=== PATIENT | male | born 1975 | race Caucasian/White ===

== ENCOUNTER 2019-04-22 04:09 | Inpatient (IN) | payer OTHER ==
[~2019-04-22] VITALS: Ht 172.7 cm; Wt 86.2 kg
[2019-04-22] MEDS ORDERED: ZIPRASIDONE MESYLATE 20 MG/ML VIAL IM ONE (04:15)
[2019-04-22 04:18] VITALS: BP 135/82
--- NOTE | 2019-04-22 04:18 | NUR ---
LABS DRAWN BY RN AT BEDSIDE.
[2019-04-22] MEDS ORDERED: WATER STERILE 10 ML MC ONE (04:21)
--- NOTE | 2019-04-22 04:22 | NUR ---
43 YO M BIBA FROM HOME. FAMILY CALLED 911 DUE TO PT'S BIZARRE BEHAVIOR AND INAPPROPRIATE SPEECH. PER FAMILY, PT HAS HX OF BIPOLAR AND SCIZOPHRENIA AND HAS NOT TAKEN HIS LITHIUM AND RISPERDAL RX X 2 DAYS. PT ARRIVES AWAKE WITH RAPID, CONSTANT, EXCESSIVE SPEECH; FLIGHT OF IDEAS PRESENT. PT USING OFFENSIVE, VULGAR LANGUAGE. UNABLE TO REDIRECT SPEECH; UNABLE TO ANSWER QUESTIONS AT THIS TIME. PT DOES FOLLOW COMMANDS WHEN DIRECTED. NON COMBATIVE. PMH-- SCHIZOPHRENIA, BIPOLAR
[2019-04-22 04:30] LABS: BASOPHILS % (AUTO) 0.3 % (0.0-2.0); EOSINOPHILS % (AUTO) 0.1 % (0.0-4.0); HEMATOCRIT 39.7 % (36-52); HEMOGLOBIN 13.1 g/dL (12.0-18.0); LYMPHOCYTES # (AUTO) 2.3 K/uL (2.0-11.5); LYMPHOCYTES % (AUTO) 16.9 % (20.5-51.1); MEAN CORPUSCULAR HEMOGLOBIN 29 pg (27-31); MEAN CORPUSCULAR HGB CONC 33 g/dL (33-37); MEAN CORPUSCULAR VOLUME 88.5 fL (80-94); MONOCYTES # (AUTO) 1.1 K/uL (0.8-1.0); MONOCYTES % (AUTO) 8.5 % (1.7-9.3); NEUTROPHILS # (AUTO) 9.9 K/uL (1.8-7.7); NEUTROPHILS % (AUTO) 74.2 % (42.2-75.2); PLATELET COUNT (AUTO) 223 K/uL (140-450); RED BLOOD CELL COUNT(AUTO) 4.49 MIL/uL (4.20-6.10); WHITE BLOOD COUNT (AUTO) 13.3 K/uL (4.8-10.8)
[2019-04-22] MEDS ORDERED: NACL 0.9% 1,000 ML IV ONE (04:30)
--- NOTE | 2019-04-22 04:30 | NUR ---
SPOKE WITH EILSSA KENNY. [phone]. WILL UPDATE ON PT'S STATUS.
[2019-04-22 04:45] LABS: ALBUMIN 3.7 g/dL (3.4-5.0); ANION GAP 18.1 (8-16); ASPARTATE AMINOTRANSFERASE 56 U/L (15-37); CARBON DIOXIDE 23.5 mmol/L (21-32); CHLORIDE 105 mmol/L (98-107); CREATININE 1.3 mg/dL (0.7-1.3); GFR ARICAN-AMERICAN 78 mL/min (>90); GLUCOSE 169 mg/dL (74-106); POTASSIUM 3.6 mmol/L (3.5-5.1); SALICYLATE 3.3 mg/dL (2.8-20.0); SODIUM SERUM 143 mmol/L (136-145); TOTAL BILIRUBIN 0.9 mg/dL (0.0-1.0); UREA NITROGEN, BLOOD 19 mg/dL (7-18)
[2019-04-22] MEDS ORDERED: HYDROcodone/APAP 5/325 MG 1 TAB TAB PO PRN (05:00)
[2019-04-22] MEDS ORDERED: MORPHINE SULFATE 2 MG/ML SYR IVP PRN (05:00)
[2019-04-22] MEDS ORDERED: DOCUSATE SODIUM 100 MG GELCAP PO PRN (05:00)
[2019-04-22] MEDS ORDERED: ONDANSETRON 4 MG/2 ML VIAL IM/IVP PRN (05:00)
[2019-04-22] MEDS ORDERED: LORazepam 2 MG/ML VIAL IM/IVP PRN (05:00)
[2019-04-22] MEDS ORDERED: ACETAMINOPHEN 325 MG TAB PO PRN (05:00)
[2019-04-22] MEDS ORDERED: ZOLPIDEM 5 MG TAB PO PRN (05:00)
--- NOTE | 2019-04-22 05:00 | NUR ---
URINE COLLECTED VIA 16 FR STRAIGHT CATH. PT TOLERATED WELL.
[2019-04-22] MEDS ORDERED: LORazepam 2 MG/ML VIAL IVP ONE (05:20)
--- NOTE | 2019-04-22 05:38 | NUR ---
PT SLEEPING; AROUSABLE TO VERBAL STIMULI. PT IS CALM, COOPERATIVE. PT IS ABLE TO ANSWER SIMPLE QUESTIONS. PT IS ABLE TO STATE HIS NAME AND , STATES HE IS IN A HOSPITAL AND IS ABLE TO RECALL BEING WITH HIS BROTHER PRIOR TO ARRIVAL. SOME FLIGHT OF IDEAS STILL PRESENT. PT FOLLOWS COMMANDS.
[2019-04-22 05:55] VITALS: BP 108/69
--- NOTE | 2019-04-22 05:55 | NUR ---
Patient will be admitted to care of Dr. Rai. Admited to TELE. Will go to room 109A. Belongings list completed. Report to GWENDOLYN Canchola.
--- NOTE | 2019-04-22 05:55 | NUR ---
RECEIVED REPORT FROM ER NURSE. PATIENT IN STABLE CONDITION. CONFUSED. ON TELEMETRY. IV ON RIGHT AC 20G. INITIAL VITAL SIGNS: UR=930/69, TEMP=97.3, HR=96, RR=18 AND O2 SAT AT 97%. SPECIMEN FOR MRSA NARES COLLECTED AND SENT TO LABORATORY. PATIENT POSITIONED COMFORTABLY IN BED. BED ON LOW POSITION. WILL ENDORSE TO AM NURSE.
[2019-04-22 06:19] LABS: BARBITURATE, URINE NEGATIVE ng/ml (NEG <=200); BENZODIAZEPINE, URINE NEGATIVE ng/mL (NEG <=200); CANNABINOID, URINE POSITIVE ng/mL (NEG <=50); COCAINE, URINE NEGATIVE ng/mL (NEG <=300); OPIATE, URINE NEGATIVE ng/mL (NEG <=2000); PHENCYCLIDINE SCREEN,URINE NEGATIVE ng/mL (NEG <=25)
[2019-04-22] MEDS ORDERED: ESK300 PO (06:23)
[2019-04-22] MEDS ORDERED: RISP3TAB19 PO (06:24)
[2019-04-22 06:47] LABS: PROTHROMBIN TIME 9.3 secs (10.8-13.4)
[2019-04-22 07:11] LABS: BILIRUBIN,URINE 1+ (NEGATIVE); BLOOD, URINE NEGATIVE (NEGATIVE); COLOR,URINE YELLOW (YELLOW); LEUKOCYTE ESTERASE ,URINE NEGATIVE (NEGATIVE); NITRITE, URINE NEGATIVE (NEGATIVE); PH,URINE 5.5 (5.0-9.0); UGLUCOSE NEGATIVE (NEGATIVE)
--- NOTE | 2019-04-22 07:17 | NUR ---
RECEIVED REPORT FROM ROUGH RICE TENDER RN. PT IS AAOX4, AWARE OF SITUATION BUT WITHDRAWN. PT SKIN IS INTACT. PT HAS IV IN THE RIGHT AC 20G. WILL INFUSE ORDERED FLUIDS. PT ABLE TO AMBULATE WITH NO PROBLEM. EXPLAINED POC TO PT AND PT VERBALIZED UNDERSTANDING. ALL SAFETY MEASURES IN PLACE. SITTER 1:1 BEDSIDE DUE TO PT BEING AGGRESSIVE IN THE ED. WILL ROUND FREQUENTLY ON PT. BED IN LOW POSITION.
--- NOTE | 2019-04-22 07:29 | NUR ---
REPORT GIVEN TO ONCOMING AM SHIFT NURSE. PATIENT IN STABLE CONDITION.
[2019-04-22 07:33] LABS: APPEARANCE,URINE SLIGHTLY HAZY (CLEAR)
[2019-04-22 07:34] LABS: RBC,URINE 0-5 /HPF (0-5); WBC,URINE 0-5 /HPF (0-5)
[2019-04-22 07:35] LABS: HYALINE CASTS, URINE 0-10 /LPF (None Seen); URINE AMORPHOUS URATE 1+ /HPF (None Seen)
[2019-04-22 08:00] VITALS: BP 113/73
--- NOTE | 2019-04-22 08:22 | NUR ---
PATIENT HAS BEEN SCREENED AND CATEGORIZED LOW NUTRITION RISK. PATIENT WILL BE SEEN WITHIN 7 DAYS OF ADMISSION. 04/28/[address]
[2019-04-22 08:23] LABS: CHOL/HDL RATIO 4.6 (1-4.5); MAGNESIUM 1.8 mg/dL (1.8-2.4); PHOSPHORUS 4.5 mg/dL (2.5-4.9); THYROID STIMULATING HORMONE 2.8 uIU/mL (0.34-3.74)
[2019-04-22 08:32] LABS: ACETAMINOPHEN < 0.5 ug/ml (10-30)
[2019-04-22] MEDS ORDERED: FOLIC ACID 1 MG TAB PO SCH (09:00)
[2019-04-22] MEDS ORDERED: MULTIVITAMIN 1 TAB PO SCH (09:00)
[2019-04-22] MEDS ORDERED: THIAMINE 200 MG/2 ML VIAL IM SCH (09:00)
--- NOTE | 2019-04-22 09:20 | NUR ---
FLUIDS STARTED PER MD ORDERS. NO OTHER MEDS GIVEN AT THIS TIME. WILL CONTINUE TO ROUND FREQUENTLY ON PT. BED IN LOW POSITION, CALL LIGHT WITHIN REACH.
[2019-04-22] MEDS: NACL 0.9% 1,000 ML IV SCH (10:33)
--- NOTE | 2019-04-22 11:40 | NUR ---
PT RESTING IN BED. ALL NEEDS MET. WILL CONTINUE TO ROUND FREQUENTLY ON PT. BED IN LOW POSITION, CALL LIGHT WITHIN REACH.
[2019-04-22 12:00] VITALS: BP 107/68
--- NOTE | 2019-04-22 13:26 | NUR ---
PT RESTING IN BED. ALL NEEDS MET. WILL CONTINUE TO ROUND FREQUENTLY ON PT. BED IN LOW POSITION, CALL LIGHT WITHIN REACH.
[2019-04-22] MEDS ORDERED: INFLUENZA VACCINE QUAD 0.5 ML SYR IMVAC SCH (14:00)
--- NOTE | 2019-04-22 14:38 | NUR ---
[facility] Patient: Jared Philippe : 1975 Age/Sex: 43/M Unit#: [id number] Room/Bed: 109/A User: Esteltia WARE Date: 04/22/19 14:19 Type: CM: Discharge Planning Tentative Discharge Plan Summary: Patient is 43 year old male with past medical history bipolar disorder and schizophrenia. I met with patient at bedside. Patient was uncooperative during assessment/discharge plan. He stated he lives at home with his girlfriend in [place], [place]. He refused to provide me with his home address and girlfriend's contact information. He stated he has a pcp. He refused to provide me with additional information. He told me he does not need any community resources nor needs social service coordinator's assistance. I informed patient's nurse Ammy patient refused community resources. Spooler Rubber Strand and/or Data Entry Supervisor will follow up as needed. Signature: SCOOTER Haile Date: Apr 22, 2019
[2019-04-22] MEDS ORDERED: INFLUENZA VACCINE QUAD 0.5 ML SYR IMVAC PRN (15:30)
--- NOTE | 2019-04-22 15:40 | NUR ---
PT SLEEPING. ALL NEEDS MET. WILL CONTINUE TO ROUND FREQUENTLY ON PT. BED IN LOW POSITION, CALL LIGHT WITHIN REACH.
[2019-04-22 16:00] VITALS: BP 111/64
--- NOTE | 2019-04-22 18:09 | NUR ---
PT EATING DINNER IN BED. ALL NEEDS MET. WILL CONTINUE TO ROUND FREQUENTLY ON PT. BED IN LOW POSITION, CALL LIGHT WITHIN REACH.
--- NOTE | 2019-04-22 19:28 | NUR ---
ENDORSED PT TO PRODUCE FIELD MERCHANDISER FOR CONTINUITY OF CARE. PT IN STABLE CONDITION AT THIS TIME.
--- NOTE | 2019-04-22 19:29 | NUR ---
RECEIVED REPORT FROM POLISH COMPOUNDER RN. PT IS AAOX4,AMBULATORY. PT SLEEPING BUT EASILY AROUSABLE. PT HAS IV IN THE RIGHT AC 20G NS AT 60 ML/HR. EXPLAINED POC TO PT AND PT VERBALIZED UNDERSTANDING. PER PREVIOUS SHIFT WAS PT BEING AGGRESSIVE IN THE ED. WILL ROUND FREQUENTLY ON PT. BED IN LOW POSITION.
[2019-04-22 20:00] VITALS: BP 110/68
[2019-04-22] MEDS: risperiDONE 1 MG TAB PO SCH (21:13)
--- NOTE | 2019-04-22 21:16 | NUR ---
PT COMPLAINED OF ANXIOUSNESS, PT GIVEN ATIVAN ORDERED FOR ANXIETY
--- NOTE | 2019-04-22 23:50 | NUR ---
PT SLEEPING AT THIS TIME, NO COMPLAINTS WILL CONTINUE TO MONITOR
[2019-04-23] VITALS: BP 108/68
--- NOTE | 2019-04-23 03:45 | NUR ---
PT USING URINAL BUT ABLE TO GO TO BATHROOM, PT FEELS SLEPY WENT BACK TO SLEEP, NO COMPLAINTS AT THIS TIME
[2019-04-23 04:00] VITALS: BP 110/69
[2019-04-23] MEDS: NACL 0.9% 1,000 ML IV SCH ×3 (05:28→23:30)
--- NOTE | 2019-04-23 05:29 | NUR ---
UNDO ZOFRAN ADMINISTRATION FOR ANOTHER PATIENT
--- NOTE | 2019-04-23 06:40 | NUR ---
DR. SCHREIBER AWARE OF ABNORMAL EKG. WILL ORDER AND I WILL CARRY OUT ORDERS
[2019-04-23 06:43] LABS: BASOPHILS % (AUTO) 0.5 % (0.0-2.0); EOSINOPHILS # (AUTO) 0.1 K/uL (0-0.4); HEMATOCRIT 34.9 % (36-52); HEMOGLOBIN 11.8 g/dL (12.0-18.0); LYMPHOCYTES # (AUTO) 2.4 K/uL (2.0-11.5); MEAN CORPUSCULAR HEMOGLOBIN 30 pg (27-31); MEAN CORPUSCULAR HGB CONC 34 g/dL (33-37); MEAN CORPUSCULAR VOLUME 88.5 fL (80-94); MONOCYTES # (AUTO) 0.6 K/uL (0.8-1.0); NEUTROPHILS % (AUTO) 56.5 % (42.2-75.2); PLATELET COUNT (AUTO) 184 K/uL (140-450); RED BLOOD CELL COUNT(AUTO) 3.94 MIL/uL (4.20-6.10); RED CELL DISTRIBUTION WIDTH 13.8 % (11.6-13.7); WHITE BLOOD COUNT (AUTO) 7.2 K/uL (4.8-10.8)
[2019-04-23 06:46] LABS: ANION GAP 13.1 (8-16); CARBON DIOXIDE 24.4 mmol/L (21-32); CREATININE 0.8 mg/dL (0.7-1.3); POTASSIUM 3.5 mmol/L (3.5-5.1)
--- NOTE | 2019-04-23 07:27 | NUR ---
PT ASLEEP BUT EASILY AROUSABLE BY VERBAL AND TACTILE STIMULI. PT IN STABLE CONDITION. WILL ENDORSE TO NEXT SHIFT
--- NOTE | 2019-04-23 07:30 | NUR ---
Received bedside report from pm nurse Marianna. Pt asleep in bed, arousable by auditory stimuli. No signs of distress, respirations even & nonlabored. Call light within reach. Right AC IV intact with ongoing NS @ 60ml/h.
[2019-04-23 08:00] VITALS: BP 122/83
[2019-04-23] MEDS: risperiDONE 1 MG TAB PO SCH ×2 (08:52→20:24)
[2019-04-23] MEDS: FOLIC ACID 1 MG TAB PO SCH (08:52)
[2019-04-23] MEDS: MULTIVITAMIN 1 TAB PO SCH (08:52)
[2019-04-23] MEDS: THIAMINE 100 MG TAB PO SCH (08:52)
[2019-04-23] MEDS ORDERED: chlordiazePOXIDE 25 MG CAP PO SCH (09:00)
--- NOTE | 2019-04-23 09:00 | NUR ---
Found med bottle at pt's bedside. With pt permission, belongings inventoried. Found bottle of lithium 300mg caps containing 3 capsules. Per med bottle label "take 2capsules in the morning". Pt states he still takes the meds prior to hospitalization. Dr Grier notified. Per physician, will f/u with psychiatrist for verification. Med bottle taken to pharmacy.
--- NOTE | 2019-04-23 09:20 | NUR ---
Pt states ED nurse took away a "[place] coin" and "[place] coin". Audra assistant director of security notified and brought in a bag with 2 coins & a small packet of dry herb. Pt instructed security to dispose of the small packet. 2 coins were handed to pt and was put away in his personal belongings bag at bedside.
[2019-04-23] MEDS ORDERED: LITHIUM CARBONATE 300 MG TAB PO SCH (10:45)
--- NOTE | 2019-04-23 14:01 | NUR ---
Pt asleep in bed, respirations even & unlabored. Right AC IV intact with ongoing NS @ 60ml/h. Urinal emptied of 300ml clear yellow urine. Empty food tray at table. Pt consumed 100% lunch. Call light within reach.
[2019-04-23 16:00] VITALS: BP 119/75
--- NOTE | 2019-04-23 17:35 | NUR ---
PT ASLEEP IN BED. RESPIRATIONS EVEN AND UNLABORED. RIGHT AC INTACT RUNNING NS @ 60 ML/H. URINAL EMPTIED OF 200ML CLEAR YELLOW URINE. CALL LIGHT WITHIN REACH.
--- NOTE | 2019-04-23 18:34 | NUR ---
PT REQUEST FOR SHOWER. IV FLUID HELD. RIGHT AC IV WRAPPED WITH PLASTIC, PT ASSISTED TO SHOWER ROOM. PT ABLE TO AMBULATE TO SHOWER ROOM WITH STEADY GAIT. PT INSTRUCTED ON PROPER USE OF CALL LIGHT IF ASSISTANCE IS NEEDED, PT VERBALIZED UNDERSTANDING.
--- NOTE | 2019-04-23 19:11 | NUR ---
REPORT RECEIVED FROM AM NURSE AT BEDSIDE. PT IN STABLE CONDITION. AAOX4. INTRODUCED SELF TO PT. BOARD UPDATED. NO COMPLAINTS OF PAIN. NO SOB. AFEBRILE. PT IS AMBULATORY WITH STEADY GAIT. IV SITE R AC 20G RUNNING NS@60ML/HR PATENT AND INTACT. SKIN WARM, DRY, AND INTACT WITH NO OPEN WOUNDS. BED LOCKED IN LOW POSITION. CALL MURRELL WITHIN REACH. SAFETY PRECAUTION IN PLACE. ALL NEEDS MET AT THIS TIME.
--- NOTE | 2019-04-23 19:15 | NUR ---
Pt completed shower independently. Able to don clean gown @ non-skid socks independently. Pt directed back to room from shower room. Pt in no distress. Report given to pm nurse Lv.
--- NOTE | 2019-04-23 20:24 | NUR ---
RISPERDAL GIVEN PO. PT TOLERATED WELL.
--- NOTE | 2019-04-23 22:15 | NUR ---
PT SLEEPING COMFORTABLY BUT AROUSABLE. NO S/S OF DISTRESS NOTED. WILL CONTINUE TO MONITOR.
[2019-04-24] VITALS: BP 117/88
--- NOTE | 2019-04-24 00:15 | NUR ---
PT SLEEPING COMFORTABLY BUT AROUSABLE. NO S/S OF DISTRESS NOTED. NO COMPLAINTS OF PAIN. NO SOB. AFEBRILE. WILL CONTINUE TO MONITOR.
[2019-04-24] MEDS ORDERED: BENZOCAINE/MENTHOL 1 LOZ MM PRN (00:30)
--- NOTE | 2019-04-24 00:59 | NUR ---
CEPACOL LOZENGE GIVEN FOR COUGH. PT TOLERATED WELL.
--- NOTE | 2019-04-24 02:30 | NUR ---
PT SLEEPING COMFORTABLY BUT AROUSABLE. NO S/S OF DISTRESS NOTED. WILL CONTINUE TO MONITOR.
--- NOTE | 2019-04-24 04:50 | NUR ---
PT SLEEPING COMFORTABLY BUT AROUSABLE. NO S/S OF DISTRESS NOTED. RESPIRATIONS EVEN, UNLABORED, AND WNL. WILL CONTINUE TO MONITOR.
[2019-04-24 06:22] LABS: BASOPHILS % (AUTO) 0.5 % (0.0-2.0); EOSINOPHILS # (AUTO) 0.2 K/uL (0-0.4); EOSINOPHILS % (AUTO) 2.6 % (0.0-4.0); HEMATOCRIT 36.6 % (36-52); HEMOGLOBIN 12.1 g/dL (12.0-18.0); LYMPHOCYTES # (AUTO) 2.6 K/uL (2.0-11.5); LYMPHOCYTES % (AUTO) 41.4 % (20.5-51.1); MEAN CORPUSCULAR HEMOGLOBIN 29 pg (27-31); MEAN CORPUSCULAR HGB CONC 33 g/dL (33-37); MEAN CORPUSCULAR VOLUME 88.6 fL (80-94); MONOCYTES # (AUTO) 0.6 K/uL (0.8-1.0); NEUTROPHILS % (AUTO) 46.5 % (42.2-75.2); PLATELET COUNT (AUTO) 198 K/uL (140-450); RED BLOOD CELL COUNT(AUTO) 4.13 MIL/uL (4.20-6.10); RED CELL DISTRIBUTION WIDTH 13.8 % (11.6-13.7); WHITE BLOOD COUNT (AUTO) 6.4 K/uL (4.8-10.8)
--- NOTE | 2019-04-24 06:42 | NUR ---
PT SLEEPING COMFORTABLY BUT AROUSABLE. PT IN STABLE CONDITION.
[2019-04-24 06:44] LABS: ANION GAP 11.3 (8-16); CARBON DIOXIDE 28.4 mmol/L (21-32); CREATININE 0.9 mg/dL (0.7-1.3); POTASSIUM 3.7 mmol/L (3.5-5.1)
--- NOTE | 2019-04-24 07:07 | NUR ---
RECEIVED REPORT FROM PM NURSE, JORGE. PT IS ASLEEP IN BED, RESPIRATION ARE EVEN AND UNLABORED. PT IS STABLE WITH NO SIGNS OF DISTRESS.
[2019-04-24 08:00] VITALS: BP 105/66
[2019-04-24] MEDS ORDERED: RIS1 PO (08:02)
[2019-04-24] MEDS ORDERED: ESK300 PO (08:02)
[2019-04-24] MEDS: risperiDONE 1 MG TAB PO SCH ×2 (08:12→20:14)
[2019-04-24] MEDS: MULTIVITAMIN 1 TAB PO SCH (08:13)
[2019-04-24] MEDS: THIAMINE 100 MG TAB PO SCH (08:13)
[2019-04-24] MEDS: FOLIC ACID 1 MG TAB PO SCH (08:13)
[2019-04-24] MEDS ORDERED: chlordiazePOXIDE 25 MG CAP PO SCH (09:00)
[2019-04-24] MEDS ORDERED: LITHIUM CARBONATE 300 MG TAB PO SCH ×2 (09:00)
--- NOTE | 2019-04-24 10:30 | NUR ---
Pt's mother on the phone stating that she thinks the pt is not ready to be discharged d/t psych instability. Per , pt will "cause a scene at home". Informed her that pt has been cleared by psych and medical doctor for discharge. Phone handed to Dr Grier.
--- NOTE | 2019-04-24 11:10 | NUR ---
Per Dr Grier, hold discharge order at this time. Dr Garcia will come in am to re-evaluate pt. Pt resting in bed at this time, no signs of distress. Call light within reach.
--- NOTE | 2019-04-24 11:14 | NUR ---
Pt notified of discharge hold. Verbalized understanding & agree with POC.
--- NOTE | 2019-04-24 11:38 | NUR ---
Spoke to (pt's mother) on the phone. Notified of discharge hold with pending psych reevaluation for tomorrow morning. Verbalized understanding & agree with POC.
--- NOTE | 2019-04-24 13:34 | NUR ---
PT IS ASLEEP. RESPIRATION ARE EVEN AND UNLABORED. PT IS FREE OF SIGNS OF DISTRESS. CALL LIGHT WITHIN REACH.
[2019-04-24 16:00] VITALS: BP 111/72
[2019-04-24] MEDS: NACL 0.9% 1,000 ML IV SCH (16:23)
--- NOTE | 2019-04-24 19:03 | NUR ---
Right AC IV leaking despite repositioning of catheter. IV removed, site covered with dry gauze. Attempted to reinsert new IV access, but unsuccessful. Pt states "no more IV." Will notify attending physician. IVF on hold at this time. Pt denies any discomfort. No signs of distress. Call light within reach.
--- NOTE | 2019-04-24 19:17 | NUR ---
RECIEVED PT AWAKE , ALERT , NID , NO COMPLAIN OF ANY DISCOMFORT AT THIS TIME , NO IVF - PT REFUSED FOR IV RE INSERTION ,RESTING ON BED COMFORTABLY . PLAN OF CARE DISCUSSED AND VERBALIZE [id number]. CALL LIGHT WITHIN REACH . WILL CONT. TO MONITOR. WILL INFORM ROGER ABOUT PT. IV REFUSAL .
--- NOTE | 2019-04-24 19:22 | NUR ---
1916 Report given to PM nurse, pt resting in bed. pt stable, no signs of distress. call light within reach.
--- NOTE | 2019-04-24 22:00 | NUR ---
MADE ROUNDS , RESTING ON BED COMFORTABLY , NO COMPLAIN MADE AT THIS TIME . CALL LIGHT WITHIN REACH.
[2019-04-25] VITALS: BP 130/82
--- NOTE | 2019-04-25 | NUR ---
MADE ROUNDS . NO COMPLIAN MADE AT THIS TIME . CALL LIGHT WITHIN REACH.
--- NOTE | 2019-04-25 02:00 | NUR ---
SLEEPING - CHEST RISE AND FALL EQUALLY . CALL LIGHT WITHIN REACH.
--- NOTE | 2019-04-25 04:00 | NUR ---
MADE ROUNDS , NO SIGNS OF ACUTE DISTRESS NOTED AT THIS TIME , CALL LIGHT WITHIN REACH.
--- NOTE | 2019-04-25 07:15 | NUR ---
ENDORSED TO AM SHIFT WITH STABLE CONDITION. FOR POSSIBLE HOME.
--- NOTE | 2019-04-25 07:18 | NUR ---
RECEIVED REPORT FROM LAB COORDINATOR NURSE. PATIENT IS LYING IN BED, ASLEEP, ABLE TO WAKE. RESPIRATION EVEN AND UNLABORED. DENIES ANY PAIN OR DISCOMFORT. BED IN LOW POSITION. CALL LIGHT WITHIN REACH.
[2019-04-25 08:00] VITALS: BP 119/84
[2019-04-25] MEDS: LITHIUM CARBONATE 300 MG TAB PO SCH (08:40)
[2019-04-25] MEDS: FOLIC ACID 1 MG TAB PO SCH (08:40)
[2019-04-25] MEDS: risperiDONE 1 MG TAB PO SCH ×2 (08:40→20:15)
[2019-04-25] MEDS: MULTIVITAMIN 1 TAB PO SCH (08:40)
[2019-04-25] MEDS: THIAMINE 100 MG TAB PO SCH (08:41)
--- NOTE | 2019-04-25 08:43 | NUR ---
AM MEDICATIONS GIVEN. TOLERATED WELL. NO S/S OF ACUTE DISTRESS NOTED.
--- NOTE | 2019-04-25 10:18 | NUR ---
PT SLEEPING COMFORTABLY BUT AROUSABLE. PT IN STABLE CONDITION.
--- NOTE | 2019-04-25 12:34 | NUR ---
PATIENT IS SITTING UP, HAVING LUNCH IN BED. DENIES ANY PAIN OR DISCOMFORT. NO S/S OF ACUTE DISTRESS NOTED.
[2019-04-25 16:00] VITALS: BP 104/82
--- NOTE | 2019-04-25 16:00 | NUR ---
VS STABLE. PATIENT IS WATCHING TV AND TABLET AT THIS TIME. NO S/S OF DISTRESS NOTED.
--- NOTE | 2019-04-25 17:00 | NUR ---
LEFT A VOICEMAIL MESSAGE TO DR. YEE' CONTACT NUMBER TO FOLLOW UP WITH THE REEVALUATION. AWAITING FOR CALL BACK.
--- NOTE | 2019-04-25 18:06 | NUR ---
PATIENT IS SITTING UP IN BED, EATING DINNER. NO S/S OF DISTRESS NOTED.
--- NOTE | 2019-04-25 19:12 | NUR ---
REPORT GIVEN TO AUDIT REVIEWER NURSE. PATIENT IN STABLE CONDITION.
--- NOTE | 2019-04-25 19:16 | NUR ---
RECEIVED PT IN STABLE CONDITION FROM AM NURSE. AWAKE,ALERT AND ORIENTED X4. MED SURG PT. WITH NO C/O ANY DISCOMFORT NOR PAIN NOTED. AMBULATORY. NO IV ACCESS ,REFUSED BY PT PER AM NURSE AND MD AWARE. PLAN OF CARE DISCUSSED AND NEED REINFORCEMENT. BED ON LOW POSITION. FREQ ROUNDS NEEDED. SIDE RAILS UP X2, CALL LIGHT PLACED WITHIN EASY REACH. WILL CONTINUE TO MONITOR.
--- NOTE | 2019-04-25 19:30 | NUR ---
DR. YEE CAME AND SEEN PT.
--- NOTE | 2019-04-25 19:50 | NUR ---
DR. LANCEREES ABLE TO CONTACT [facility] AND SAID THERE IS BED AVAILABLE FOR PT. GWENDOLYN BROWNE CHARGE TO FAX THE PAPERS TO THE FACILITY.
--- NOTE | 2019-04-25 20:00 | NUR ---
PT HAS HOLD PAPER BY .PER PT DOESN'T NEED TO HAVE SITTER.
--- NOTE | 2019-04-25 20:19 | NUR ---
POSSIBLE TRANSFER TO [facility]. FLU VACCINE ADMINISTERED ON THE RIGHT ARM .
--- NOTE | 2019-04-25 20:30 | NUR ---
TOLD ME THAT HE TALKED W/[facility] AND THEY HAVE BED FOR PT.I FAXED FACE SHEET AND HOLD PAPER THAT DR YEE RENEWED EARLIER.CALLED [facility] TO F/U ON TRANSFER AT 2019 TALKED W/CYNDY,SHE SAID SHE DID RECEIVED COMPLETE HOLD PAPER.SO I FAXED AGAIN.SHE SAID SHE WILL REVIEW AND CALL ME BACK.
--- NOTE | 2019-04-25 21:00 | NUR ---
MADE ROUNDS. PT ASLEEP. NO S/S OF ANY DISCOMFORT NOTED. WILL CONTINUE TO MONITOR.
--- NOTE | 2019-04-25 22:00 | NUR ---
CALLED [facility] TO FOLLOW UP THE BED TRANSFER OF PT. ABLE TO TALKED TO CYNDY AND SAID THEY ARE STILL WORKING ON THE INSURANCE. SHE SAID TO CALL TOMORROW /OR IF WE CAN PROVIDE A COPY OF HIS INSURANCE, TO FAX THEM A COPY.
--- NOTE | 2019-04-25 22:11 | NUR ---
PAGED DR. YEE AND CALLED BACK. MADE AWARE ABOUT [facility] STILL WORKING ON PT'S INSURANCE AND WE WILL HAVE TO FOLLOW UP WITH THEM AGAIN TOMORROW.
[2019-04-25 23:46] VITALS: BP 125/92
--- NOTE | 2019-04-26 00:30 | NUR ---
PT IS ASLEEP. NO S/S FO ANY PAIN NOR DISCOMFORT NOTED. WILL CONTINUE TO MONITOR.
--- NOTE | 2019-04-26 02:30 | NUR ---
PRT UP TO THE BATHROOM. NO C/O ANY DISCOMFORT NOTED.
--- NOTE | 2019-04-26 04:30 | NUR ---
PT STILL ASLEEP. NO S/S OF ANY DISCOMFORT NOTED.
--- NOTE | 2019-04-26 07:32 | NUR ---
ENDORSED PT IN STABLE CONDITION TO AM NURSE.
--- NOTE | 2019-04-26 07:34 | NUR ---
PT IS AO X4. BEDSIDE RAILS UP X2, BED LOCKED AND IN LOWEST POSITION, PATIENT STATED THAT HE WALKS TOP RESTROOM W/O ASSIST. PER SUB PLANT MANAGER RN, PT DOESN'T WANT IV AND MD WAS MADE AWARE.
[2019-04-26 08:00] VITALS: BP 92/62
[2019-04-26] MEDS: THIAMINE 100 MG TAB PO SCH (08:59)
[2019-04-26] MEDS: FOLIC ACID 1 MG TAB PO SCH (08:59)
[2019-04-26] MEDS: risperiDONE 1 MG TAB PO SCH ×2 (08:59→20:39)
[2019-04-26] MEDS: LITHIUM CARBONATE 300 MG TAB PO SCH (08:59)
[2019-04-26] MEDS: MULTIVITAMIN 1 TAB PO SCH (09:00)
--- NOTE | 2019-04-26 10:00 | NUR ---
PT'S URINAL HAD 450 CC. URINAL WAS PLACED BACK TO PT'S BEDSIDE TABL
--- NOTE | 2019-04-26 11:09 | NUR ---
PT FOUND SLEEPING IN BED WITH NO SIGNS OF DISTRESS. CHEST VISIBLY RECOILING HE TOLD RN THAT HE HEARS VOICES RN TOLD PT THAT WE WILL HAVE TO CONT TAKING HIS MEDICATIONS AND TO LET RN KNOW FOR THE PSYCHIATRIST TO COME SEE HIM OR CHANGE MEDS DOSE. PT VERBALIZED UNDERSTANDING
--- NOTE | 2019-04-26 13:59 | NUR ---
PT SHOWERING. BED LINEN GETTING CHANGED BY NURSE STUDENT
--- NOTE | 2019-04-26 14:08 | NUR ---
SPOKE TO PANKAJ FROM [facility] AND THEY TOLD RN THAT THERE'S NO ANSWER TODAY WHETHER PT WILL HAVE A BED TODAY BUT MORE LIKELY TOMORROW. ANH GE MADE AWARE
[2019-04-26 16:11] VITALS: BP 96/52
--- NOTE | 2019-04-26 16:43 | NUR ---
PER DR. YEE, PT HAS GRAVE DISABILITY, NO SITTER NEEDED.
--- NOTE | 2019-04-26 18:00 | NUR ---
DR. YEE MADE AWARE THAT [facility] WANTS THE NURSE TO CALL BACK TOMORROW TO CHECK ON THE STATUS OF PT'S ADMISSION PROCESS AND INSURANCE APPROVAL OF HIS PT'S PLACEMENT.
--- NOTE | 2019-04-26 19:06 | NUR ---
PT ENDORSED IN STABLE CONDITIONS TO NIGHT NURSE ALL QUESTIONS ANSWERED
--- NOTE | 2019-04-26 19:10 | NUR ---
RECEIVED PT IN STABLE CONDITION FROM AM NURSE. MED SURG PT. LYING IN BED. AWAKE,ALERT AND ORIENTED X4. WITH NO C/O ANY DISCOMFORT NOTED. NO IV ACCESS ,MD AWARE. BED ON LOW POSITION.SIDE RAILS UP X2. CALL LIGHT AND URINAL PLACED WITHIN EASY REACH. PLAN OF CARE DISCUSSED AND NEED REINFORCEMENT. WILL CONTINUE TO MONITOR.
--- NOTE | 2019-04-26 21:00 | NUR ---
PT UP TO THE BATHROOM. NO C/O ANY DISCOMFORT NOTED.
--- NOTE | 2019-04-26 23:00 | NUR ---
PT SLEEPING WELL. NO S/S OF ANY PAIN NOR DISCOMFORT NOTED. WILL CONTINUE TO MONITOR.
[2019-04-26 23:47] VITALS: BP 121/86
--- NOTE | 2019-04-27 01:00 | NUR ---
PT ASLEEP. NO S/S OF ANY DISCOMFORT NOTED.
--- NOTE | 2019-04-27 03:00 | NUR ---
MADE ROUNDS. PT IN STABLE CONDITION. WITH NO S/S OF ANY DISCOMFORT NOTED.
--- NOTE | 2019-04-27 05:00 | NUR ---
SLEEPING WITH NO S/S OF ANY PAIN NOTED.
--- NOTE | 2019-04-27 06:59 | NUR ---
ENDORSED PT IN STABLE CONDITION TO AM NURSE.
--- NOTE | 2019-04-27 07:34 | NUR ---
PT IS AO X4. BEDSIDE RAILS UP X2, BED LOCKED AND IN LOWEST POSITION, PATIENT MENTIONED THAT HE STILL HEAR VOICES BUT NO PAIN. PT DOESN'T WANT IV AND MD WAS MADE AWARE.
[2019-04-27 08:00] VITALS: BP 86/56
[2019-04-27] MEDS: LITHIUM CARBONATE 300 MG TAB PO SCH (08:49)
[2019-04-27] MEDS: MULTIVITAMIN 1 TAB PO SCH (08:50)
[2019-04-27] MEDS: FOLIC ACID 1 MG TAB PO SCH (08:50)
[2019-04-27] MEDS: THIAMINE 100 MG TAB PO SCH (08:50)
[2019-04-27] MEDS: risperiDONE 1 MG TAB PO SCH ×2 (08:50→20:07)
--- NOTE | 2019-04-27 10:32 | NUR ---
CLINDAMYCIN INFUSING. PT TOLERATING WELL. NO COMPLAINTS AT THIS TIME Addendum: 04/27/19 at 1033 by Agency Jaspal RN RN WRONG PT
--- NOTE | 2019-04-27 10:34 | NUR ---
PT ASKED FOR WATER. WATER WAS HANDED TO HIM
--- NOTE | 2019-04-27 12:26 | NUR ---
PT LYING IN BED. NO COMPLAINTS. MOTHER AT BEDSIDE.
--- NOTE | 2019-04-27 14:05 | NUR ---
PT SITTING IN BED WITH NO SIGNS OF DISTRESS.
--- NOTE | 2019-04-27 15:30 | NUR ---
Hydro [employer] Station Operator Note: I faxed inquiry to [facility]. I also faxed inquiries to [facility], [facility], and [facility]. Addendum: 04/28/19 at 1043 by Estelita Corado Follow-up call made to the [facility] ; Cj was informed they didn't receive the pt's packet for placement. Cj faxed records to . Estelita Corado, [facility] Ext [phone]
[2019-04-27 16:09] VITALS: BP 109/77
--- NOTE | 2019-04-27 16:52 | NUR ---
PT SITTING IN BED. NO COMPLAINTS AT THIS TIME
--- NOTE | 2019-04-27 19:17 | NUR ---
PT ENDORSED IN STABLE CONDITIONS TO NIGHT NURSE, ANDRAE RN ALL QUESTIONS ANSWERED
--- NOTE | 2019-04-27 19:18 | NUR ---
REPORT RECEIVED FROM AM NURSE AT BEDSIDE. PT IN STABLE CONDITION. AAOX4. INTRODUCED SELF TO PT. BOARD UPDATED. NO COMPLAINTS OF PAIN. NO SOB. AFEBRILE. PT IS AMBULATORY. PT CURRENTLY HAS NO IV SITE. AWARE. SKIN WARM, DRY, AND INTACT WITH NO OPEN WOUNDS. BED LOCKED IN LOW POSITION. CALL MURRELL WITHIN REACH. SAFETY PRECAUTION IN PLACE. ALL NEEDS MET AT THIS TIME.
--- NOTE | 2019-04-27 20:07 | NUR ---
RISPERDAL GIVEN PO. PT TOLERATED WELL.
--- NOTE | 2019-04-27 22:05 | NUR ---
PT SLEEPING COMFORTABLY BUT AROUSABLE. NO S/S OF DISTRESS NOTED. WILL CONTINUE TO MONITOR.
[2019-04-28] VITALS: BP 118/77
--- NOTE | 2019-04-28 00:10 | NUR ---
PT SLEEPING COMFORTABLY BUT AROUSABLE. NO S/S OF DISTRESS NOTED. VS STABLE. WILL CONTINUE TO MONITOR.
--- NOTE | 2019-04-28 01:00 | NUR ---
RECEIVED REPORT FROM NURSE PATEL FOR CONTINUITY OF CARE. PATIENT ASLEEP IN BED. NO APPARENT DISTRESS NOTED. VISIBLE CHEST RISE AND FALL. WILL CONTINUE TO MONITOR.
--- NOTE | 2019-04-28 02:05 | NUR ---
PATIENT ASLEEP IN BED. NO APPARENT DISTRESS NOTED. VISIBLE CHEST RISE AND FALL NOTED. WILL CONTINUE TO MONITOR.
--- NOTE | 2019-04-28 03:15 | NUR ---
ROUNDS DONE. PATIENT ASLEEP IN BED. NO APPARENT DISTRESS NOTED. VISIBLE CHEST RISE AND FALL NOTED. WILL CONTINUE TO MONITOR.
--- NOTE | 2019-04-28 05:10 | NUR ---
CHECKS DONE. PATIENT ASLEEP IN BED. VISIBLE CHEST RISE AND FALL NOTED. NO APPARENT DISTRESS NOTED. BED ON LOW POSITION. CALL LIGHT WITHIN REACH. WILL CONTINUE TO MONITOR.
--- NOTE | 2019-04-28 06:43 | NUR ---
PATIENT ASLEEP IN BED. NO APPARENT DISTRESS NOTED. VISIBLE CHEST RISE AND FALL NOTED. CALL LIGHT WITHIN REACH. WILL CONTINUE TO MONITOR.
--- NOTE | 2019-04-28 07:15 | NUR ---
RECEIVED REPORT FOR CONTINUITY OF CARE. PT IN STABLE CONDITION. RESPIRATIONS EVEN AND UNLABORED. NO IV ACCESS, IS AWARE. SAFETY MEASURES IN PLACE AND PATENT. BED IN LOW POSITION. CALL LIGHT AT BEDSIDE. WILL CONTINUE TO MONITOR.
[2019-04-28 08:00] VITALS: BP 119/77
[2019-04-28] MEDS ORDERED: NICOTINE TRANSD SYS 14 MG/24 HR PATCH TD SCH (09:00)
[2019-04-28] MEDS: THIAMINE 100 MG TAB PO SCH (09:16)
[2019-04-28] MEDS: LITHIUM CARBONATE 300 MG TAB PO SCH (09:16)
[2019-04-28] MEDS: MULTIVITAMIN 1 TAB PO SCH (09:16)
[2019-04-28] MEDS: risperiDONE 1 MG TAB PO SCH (09:16)
[2019-04-28] MEDS: FOLIC ACID 1 MG TAB PO SCH (09:16)
--- NOTE | 2019-04-28 09:25 | NUR ---
GAVE ORDERED DUE MEDICATIONS AT THIS TIME. PT TOLERATED WELL. BED IN LOW POSITION. CALL LIGHT AT BEDSIDE. WILL CONTINUE TO MONITOR.
--- NOTE | 2019-04-28 11:23 | NUR ---
PT LYING IN BED WATCHING TV IN STABLE CONDITION. RESPIRATIONS EVEN AND UNLABORED. BED IN LOW POSITION. CALL LIGHT AT BEDSIDE. WILL CONTINUE TO MONITOR.
--- NOTE | 2019-04-28 11:28 | NUR ---
Received packet for placement. S/W giovani Capone regarding patient's not matching [employer] database
--- NOTE | 2019-04-28 11:47 | NUR ---
Ultimate Hoops Referee Note: Per Sherice from [facility] , patient's Medicare date of does not match data base, I informed both Insurance Verifiers Rossy and Sondra Selby of this and requested they please verify Medicare information.
--- NOTE | 2019-04-28 12:23 | NUR ---
Called Medicare and s/serafin Rankin to check patient's eligibility. When tried to pull medicare days thru passport, it stated that did not match medicare database. Per Massiel at Medicare she gave me a different . S/W giovani Capone for patient and gave her information regarding . Fax packet to [facility] for review. Eliecer/W Massiel
--- NOTE | 2019-04-28 12:28 | NUR ---
S/W Isabel at [facility]. Packet received
--- NOTE | 2019-04-28 12:39 | NUR ---
04/28/19 RD INITIAL ASSESSMENT COMPLETED PLEASE REFER TO NUTRITION ASSESSMENT UNDER CARE ACTIVITY FOR ESTIMATED NUTRITIONAL NEEDS. 1. CONTINUE REGULAR DIET TOLERATED 2. RD PROVIDED FOOD AND DRUG INTERACTION EDUCATION 3. RD TO FOLLOW-UP 5-7 DAYS, LOW RISK MARCIE MERINO RD
--- NOTE | 2019-04-28 13:30 | NUR ---
Jm lee currently reviewing packet
--- NOTE | 2019-04-28 13:45 | NUR ---
ESSIE FROM [facility] CALLED FOR REPORT ON PT STATUS.
--- NOTE | 2019-04-28 13:58 | NUR ---
Anni @ [facility] confirmed the PT has been accepted but cannot be transferred until the hold is re written. She advised she would save the bed for today until the hold is rewritten tonight.
--- NOTE | 2019-04-28 13:59 | NUR ---
Estelita from [place] called for update. I confirmed that the pt needs to have 5150 re written tonight in order for [facility] to complete transfer. Estelita advised for me to try placing PT at [place] in the mean while
--- NOTE | 2019-04-28 14:01 | NUR ---
Spoke with Sheridan joel [place] who confirmed no beds are available today but to fax the packet for a wait list. Packet being faxed now Addendum: 04/28/19 at 1635 by Nancy Bowie DC PLANNING PT IS ACCEPTED AT [facility] [phone] DR LUCERO , CAN GO TO ROOM UNIT 2B . ARRANGED TRANSPORT WITH NEEL CANTRELL , FIRE EXTINGUISHER TESTER TIME 5:30 PM NOTIFIED BERNARDINO SNOW
--- NOTE | 2019-04-28 15:01 | NUR ---
SPOKE TO ZOYA (MOTHER), ABOUT DISCHARGE PLANNING WITH PT CONSENT.
--- NOTE | 2019-04-28 15:43 | NUR ---
Discharge Plan: PIYUSH contacted [facility] Call Center and spoke to Joslyn. Per Joslyn, [facility] has accepted patient. Joslyn requested for renewed 5150 to be [facility] to [facility] [phone] and to [facility] Call Center [phone]. PIYUSH faxed renewed [phone] to both. PIYUSH will follow up as needed.
--- NOTE | 2019-04-28 17:25 | NUR ---
GAVE DISCHARGE INSTRUCTIONS, PT VERBALIZED UNDERSTANDING. GAVE TRANSPORT INSTRUCTIONS TO TRANSPORT TEAM, ALL QUESTIONS ANSWERED AT THIS TIME. ID BAND REMOVED. PT PLACED ON GURNEY IN STABLE CONDITION.
== END 2019-04-28 17:30 | DRG 917 ==
LOC: MED 04:09 → EDBD 05:07 → MTU 05:07 → MMU 16:45
PROVIDERS: ADMIT General Practice; ATTEND General Practice
DX: T43.621A Poisoning by amphetamines, accidental (unintentional), initial encounter (principal); G92 Toxic encephalopathy; R65.10 Systemic inflammatory response syndrome (SIRS) of non-infectious origin without acute organ dysfunction; F15.10 Other stimulant abuse, uncomplicated; E86.0 Dehydration; F10.10 Alcohol abuse, uncomplicated; F41.9 Anxiety disorder, unspecified; F20.9 Schizophrenia, unspecified; F15.129 Other stimulant abuse with intoxication, unspecified; F31.9 Bipolar disorder, unspecified; F17.210 Nicotine dependence, cigarettes, uncomplicated; F19.10 Other psychoactive substance abuse, uncomplicated; E78.5 Hyperlipidemia, unspecified; Y92.89 Other specified places as the place of occurrence of the external cause; Z91.19 Patient's noncompliance with other medical treatment and regimen
CPT/HCPCS: 36415; 71045; 80048; 80053; 80178; 80305; 81001; 83036; 83690; 83735; 83880; 84100; 84443; 85025; 85610; 85730; 87081; 93005; 96361; 96372; 96374; 97116; 97161-GP; 97530; 99285; G0480; G0482; J2060; J3411; J3486; J7030; Q0092

== ENCOUNTER 2019-12-17 18:04 | Emergency (ER) | payer OTHER ==
[~2019-12-17] VITALS: Ht 167.6 cm; Wt 83.9 kg
[~2019-12-17 18:04] MED LIST: ESK300 PO; RIS1 PO
[2019-12-17 18:09] VITALS: BP 116/78
--- NOTE | 2019-12-17 18:09 | NUR ---
PT PLACED IN BED 5 BY EMS.
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
[2019-12-17] MEDS ORDERED: NACL 0.9% 1,000 ML IV ONE ×2 (18:30→20:20)
--- NOTE | 2019-12-17 18:41 | NUR ---
PT UNABLE TO PROVIDE URINE SAMPLE AT THIS TIME, ERMD NOTIFIED, DOES NOT WANT ME TO STRAIGHT CATH PT
--- NOTE | 2019-12-17 18:42 | NUR ---
PT TAKEN TO CT
--- NOTE | 2019-12-17 18:43 | NUR ---
JOANN NOTIFIED OF BS OF 73
[2019-12-17 18:49] LABS: BASOPHILS # (AUTO) 0.1 K/uL (0.00-0.22); BASOPHILS % (AUTO) 0.8 % (0.0-2.0); EOSINOPHILS % (AUTO) 0.5 % (0.0-4.0); HEMATOCRIT 44.8 % (36-52); HEMOGLOBIN 14.7 g/dL (12.0-18.0); LYMPHOCYTES # (AUTO) 1.3 K/uL (2.0-11.5); LYMPHOCYTES % (AUTO) 18.9 % (20.5-51.1); MEAN CORPUSCULAR HEMOGLOBIN 30 pg (27-31); MEAN CORPUSCULAR HGB CONC 33 g/dL (33-37); MEAN CORPUSCULAR VOLUME 89.9 fL (80-94); MONOCYTES # (AUTO) 0.6 K/uL (0.8-1.0); MONOCYTES % (AUTO) 9.2 % (1.7-9.3); NEUTROPHILS # (AUTO) 4.8 K/uL (1.8-7.7); NEUTROPHILS % (AUTO) 70.6 % (42.2-75.2); PLATELET COUNT (AUTO) 271 K/uL (140-450); RED BLOOD CELL COUNT(AUTO) 4.98 MIL/uL (4.20-6.10); RED CELL DISTRIBUTION WIDTH 14.4 % (11.6-13.7); WHITE BLOOD COUNT (AUTO) 6.7 K/uL (4.8-10.8)
[2019-12-17 19:06] LABS: ALBUMIN 4.2 g/dL (3.4-5.0); ASPARTATE AMINOTRANSFERASE 30 U/L (15-37); CARBON DIOXIDE 28.4 mmol/L (21-32); CHLORIDE 106 mmol/L (98-107); CREATININE 1.3 mg/dL (0.6-1.3); GFR ARICAN-AMERICAN 78 mL/min (>90); GLUCOSE 78 mg/dL (74-106); POTASSIUM 3.4 mmol/L (3.5-5.1); SODIUM SERUM 148 mmol/L (136-145); UREA NITROGEN, BLOOD 12 mg/dL (7-18)
[2019-12-17 19:18] LABS: ACETAMINOPHEN < 0.5 ug/ml (10-30); SALICYLATE < 2.8 mg/dL (2.8-20.0)
--- NOTE | 2019-12-17 19:27 | NUR ---
REPORT RECEIVED FROM NEERU SNOW FOR CONTINUITY OF CARE.
--- NOTE | 2019-12-17 19:30 | NUR ---
PT REQUESTING WATER. SPOKE WITH JOANN DANIELS. OKAY TO GIVE. PT TOLERATED WELL.
--- NOTE | 2019-12-17 21:00 | NUR ---
RECHECKED VITALS. VSS. RESPIRATIONS EVEN AND UNLABORED. CHEST RISE IS SYMMETRICAL. WILL CONTINUE TO MONITOR.
--- NOTE | 2019-12-17 23:08 | NUR ---
URINE COLLECTED AND SENT TO LAB.
[2019-12-17 23:24] LABS: APPEARANCE,URINE CLEAR (CLEAR); BILIRUBIN,URINE NEGATIVE (NEGATIVE); BLOOD, URINE NEGATIVE (NEGATIVE); COLOR,URINE YELLOW (YELLOW); LEUKOCYTE ESTERASE ,URINE NEGATIVE (NEGATIVE); NITRITE, URINE NEGATIVE (NEGATIVE); UGLUCOSE NEGATIVE (NEGATIVE)
[2019-12-18 00:03] LABS: BARBITURATE, URINE NEGATIVE ng/ml (NEG <=200); BENZODIAZEPINE, URINE NEGATIVE ng/mL (NEG <=200); CANNABINOID, URINE NEGATIVE ng/mL (NEG <=50); COCAINE, URINE NEGATIVE ng/mL (NEG <=300); OPIATE, URINE NEGATIVE ng/mL (NEG <=2000); PHENCYCLIDINE SCREEN,URINE NEGATIVE ng/mL (NEG <=25)
--- NOTE | 2019-12-18 01:36 | NUR ---
COVERING PRIMARY RN FOR LUNCH RELIEF -- PT REMAINS IN BED, SLEEPING, AROUSABLE TO NAME. VS REMAIN STABLE ON CONTINOUS CARDIAC MONITORING.
--- NOTE | 2019-12-18 02:51 | NUR ---
PT HAS EYES CLOSED, RESPIRATIONS EVEN AND UNLABORED. CHEST RISE IS SYMMETRICAL. 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 VSS. WILL CONTINUE TO MONITOR.
[2019-12-18 04:41] VITALS: BP 114/64
--- NOTE | 2019-12-18 04:41 | NUR ---
Patient discharged with v/s stable. Written and verbal after care instructions given and explained. Patient verbalized understanding. Ambulatory with steady gait. All questions addressed prior to discharge. Advised to follow up with PMD. Addendum: 12/18/19 at 0451 by [email or web address] IV DISCONTINUED. ID BAND REMOVED.
== END 2019-12-18 04:41 | disposition home or self-care (01) ==
LOC: MED 18:04
DX: F15.10 Other stimulant abuse, uncomplicated (principal)
CPT/HCPCS: 36415; 70450; 71045; 80053; 80305; 81003; 82550; 84484; 85025; 93005; 96360; 96361; 99285; G0480; G0482; Q0092; J7030

== ENCOUNTER 2020-06-09 08:50 | Emergency (ER) | payer OTHER ==
[~2020-06-09] VITALS: Ht 172.7 cm; Wt 66.2 kg
--- NOTE | 2020-06-09 08:50 | NUR ---
Patient BIBA BLS on a 5150 hold, transferred to bed 6. RN evaluating patient at bedside.
[2020-06-09 09:00] VITALS: BP 126/78
--- NOTE | 2020-06-09 09:03 | NUR ---
Dr. Walker is evaluating patient at bedside.
[2020-06-09] MEDS ORDERED: diphenhydrAMINE 50 MG/ML VIAL IM ONE (09:10)
[2020-06-09] MEDS ORDERED: ZIPRASIDONE MESYLATE 20 MG/ML VIAL IM ONE (09:10)
[2020-06-09] MEDS ORDERED: LORazepam 2 MG/ML VIAL IM ONE (09:10)
[2020-06-09 10:19] LABS: BASOPHILS # (AUTO) 0.1 K/uL (0.00-0.22); BASOPHILS % (AUTO) 0.8 % (0.0-2.0); EOSINOPHILS # (AUTO) 0.1 K/uL (0-0.4); EOSINOPHILS % (AUTO) 1.2 % (0.0-4.0); HEMATOCRIT 43.9 % (36-52); HEMOGLOBIN 14.4 g/dL (12.0-18.0); LYMPHOCYTES # (AUTO) 1.8 K/uL (2.0-11.5); LYMPHOCYTES % (AUTO) 27.2 % (20.5-51.1); MEAN CORPUSCULAR HEMOGLOBIN 29 pg (27-31); MEAN CORPUSCULAR HGB CONC 33 g/dL (33-37); MEAN CORPUSCULAR VOLUME 88.5 fL (80-94); MONOCYTES # (AUTO) 0.8 K/uL (0.8-1.0); MONOCYTES % (AUTO) 11.5 % (1.7-9.3); NEUTROPHILS % (AUTO) 59.3 % (42.2-75.2); PLATELET COUNT (AUTO) 223 K/uL (140-450); RED BLOOD CELL COUNT(AUTO) 4.96 MIL/uL (4.20-6.10); RED CELL DISTRIBUTION WIDTH 14.2 % (11.6-13.7); WHITE BLOOD COUNT (AUTO) 6.7 K/uL (4.8-10.8)
[2020-06-09 10:49] LABS: CREATINE KINASE MB 4.7 ng/mL (0-3.6)
[2020-06-09 10:51] LABS: ALBUMIN 3.6 g/dL (3.4-5.0); ANION GAP 14.4 (8-16); CARBON DIOXIDE 28.4 mmol/L (21-32); CREATININE 0.8 mg/dL (0.6-1.3); POTASSIUM 3.8 mmol/L (3.5-5.1); TOTAL BILIRUBIN 0.4 mg/dL (0.0-1.0)
[2020-06-09 11:30] LABS: SALICYLATE < 2.8 mg/dL (2.8-20.0)
[2020-06-09 12:04] LABS: BARBITURATE, URINE NEGATIVE ng/ml (NEG <=200); BENZODIAZEPINE, URINE NEGATIVE ng/mL (NEG <=200); CANNABINOID, URINE NEGATIVE ng/mL (NEG <=50); COCAINE, URINE NEGATIVE ng/mL (NEG <=300); OPIATE, URINE NEGATIVE ng/mL (NEG <=2000); PHENCYCLIDINE SCREEN,URINE NEGATIVE ng/mL (NEG <=25)
[2020-06-09 14:28] VITALS: BP 120/93
--- NOTE | 2020-06-09 14:29 | NUR ---
Stable VSS Afebrile Resting with eyes closed In line of site of nursing station Cleared medically Awaiting placement
--- NOTE | 2020-06-09 16:10 | NUR ---
Intake was sent earlier -Late note Information was faxed to the following facilities [facility]/ [facility]cell[facility]/ [facility] Sergio called back spoke with Chilo. Patient has been accepted to [facility] [address] [place] [address] Accepting physician - Dr. Melendrez [address] / [address]-B Nurse to nurse report - [phone] Please wait 30 minutes to call report then facility will be able to accept report and you may send your patient
--- NOTE | 2020-06-09 18:05 | NUR ---
Has bee accepted at [facility] Report called to Yareli and also given to EMS transport Patient still very sleepy but VSS and easily aroused Ambulated to [facility]
== END 2020-06-09 18:05 ==
LOC: MED 08:50
DX: F20.9 Schizophrenia, unspecified (principal); F31.9 Bipolar disorder, unspecified; Z20.828 Contact with and (suspected) exposure to other viral communicable diseases
CPT/HCPCS: 36415; 80053; 80305; 82550; 82553; 84484; 85025; 87426; 93005; 96372; 99285; G0480; G0482; J1200; J2060; J3486